=== PATIENT | female | born 1985 | race Caucasian/White ===

== ENCOUNTER 2025-03-29 15:30 | Emergency (ER) | payer SELFPAY ==
[2025-03-29] VITALS (8 sets, daily range): BP systolic 96–118; BP diastolic 60–94; PULSE 96–103; RESP 14–26; TEMP 35.8–36.6; O2SAT 95–100; BMI 29.8
--- NOTE | 2025-03-29 15:45 | RAD_ITS ---
PROCEDURE: RAD/Wrist min 3 Views
--- NOTE | 2025-03-29 15:45 | EX.ED.UPPERE ---
HPI History of Present Illness Chief Complaint: Upper Extremity Injury Detail of Chief Complaint: Right wrist injury Informant: patient Narrative Narrative: Patient presents to the emergency department with injury to the right wrist that occurred prior to arrival in the emergency department. Patient states she was rollerskating when she fell and injured her right wrist. She is ambidextrous. Denies any other injuries. She is not anticoagulated. She broke both wrist 3 years ago. She did not require surgery 3 years ago. PFSH PFS Medical History (Updated 03/29/25 @ 16:[address] Tk Montero, DO) Arm fracture, right Hysterectomy planned Benign tumor of back Cysts of both ovaries Home Medications ?Medication ?Instructions ?Recorded ?Last Taken ?Type Ibuprofen [Motrin] 800 mg PO DAILY 06/06/15 Unknown History oxycodone-acetaminophen 5 mg-325 1 tab PO Q8H PRN pain 3 days #15 03/29/25 Unknown Rx mg tablet (Percocet) tabs Allergy/AdvReac Type Severity Reaction Status Date / Time morphine Allergy Severe Rash Verified 03/29/25 15:31 Surgical History (Updated 03/29/25 @ 16:32 by Yecenia Ann) History of removal of both ovaries Social History Smoking Status: Current every day smoker tobacco type: e-cigarettes ROS ROS ED Review of Systems ROS Unobtainable: other Constitutional Constitutional ED: Reports lethargy; Denies chills, fever(s), sweats or weight loss Eyes Eyes: Denies blurry vision, change in vision or diplopia ENT ENT ED: Denies rhinorrhea or sore throat Cardiovascular Cardiovascular: Denies chest pain, orthopnea or racing heartbeat Respiratory/Chest Respiratory/Chest: Denies cough, dyspnea, dyspnea on exertion, orthopnea or sputum Gastrointestinal Gastrointestinal: Denies abdominal pain, diarrhea, nausea or vomiting Genitourinary Genitourinary ED: Denies dysuria, hematuria or urinary frequency Musculoskeletal Musculoskeletal: Reports other Details: Right wrist-patient has diffuse tenderness over the distal radius with some soft tissue swelling noted and mild deformity. Neurovascularly intact distally. No broken skin. No pain at the elbow. ; Denies arthralgias, back pain, myalgias or neck pain Integumentary Denies abscess, Abrasions or rash Neurologic Neurologic: Denies headache(s) or weakness Psychiatric Psychiatric: Denies anxiety, depression or suicidal thoughts Endocrine Endocrinology: Denies polydipsia, polyphagia or polyuria Hematologic/Lymphatic Hematologic/Lymphatic: Denies easy bleeding, easy bruising or lymphadenopathy Allergic/Immunologic Allergic/Immunologic ED: Denies mouth swelling, tongue swelling or urticaria EXAM Physical Exam Const Vital Signs: 03/29/25 15:32 Temperature 96.5 F L Temperature Source Temporal Pulse Rate 96 Respiratory Rate 18 Blood Pressure 107/60 Blood Pressure Mean 75 Pulse Ox 97 Oxygen Delivery Method Room Air MDM MDM MDM Narrative Medical decision making narrative: Patient presents with injury to the right wrist. Three-view x-rays obtained showed a distal radius fracture impacted and intra-articular. Patient was consented for procedural sedation with propofol. I was able to perform closed reduction and splint the patient in AP splint. Normal neurovascular status after reduction. Postreduction x-rays were obtained and showed good reduction. Discussed case with Dr. Lennon who was able to evaluate the films studies and agrees with following up patient in the office and we will discuss possible surgical options. Patient will be given a sling. She will be given a prescription for Percocet for home. Instructed to ice and elevate the extremity. Advised to follow-up in 2 days with orthopedics. Lab Data Attestation: I reviewed the patient's lab results. Radiography Diagnostic Testing: Three-view x-rays of the right wrist obtained interpreted by myself as distal radius fracture that impacted and intra-articular. 3 view x-rays obtained postreduction showed good reduction of the fracture. Procedures Procedural Sedation 1 (Initial Baseline): Consent Signed: Yes Any Problems With Anesthesia: No You/Your family experience fever (hyperthermia) w/anesthesia: No Sedation medication: Propofol Dose: 120 Route: IV Total Moderate Sedation Units: 120 Maliampati Score: Class I ASA Classification: I Discharge Plan Triage Chief Complaint: Upper Extremity Injury ED Provider: Tk Montero Dx/Rx/DC Orders Clinical Impression: Distal radial fracture Instructions: ED Colles Fracture, Reduction Required Prescriptions: New oxycodone-acetaminophen [Percocet] 5-325 mg tablet 1 tab PO Q8H PRN (Reason: pain) 3 Days Qty: 15 0RF No Action Ibuprofen [Motrin] 800 MG tablet 800 mg PO DAILY Primary Care Provider: Care Physician,No Primary Referrals: Aj Ashford DO [Med Staff - Active Staff, Orthopedics] - 03/31/25 Care Physician,No Primary [Primary Care Provider, Medical] Activity Restrictions/Additional Instructions: See the orthopedic surgeon on March 31. Call the office at 8 AM to set up appointment and let them know that you were seen in the emergency department and you need to follow-up on that day. Print Language: Armenian Disposition Disposition: Home, Self Care
--- NOTE | 2025-03-29 16:30 | RAD_ITS ---
PROCEDURE: RAD/Wrist min 3 Views
--- NOTE | 2025-03-29 16:50 | CM.ED ---
Social Work Date of referral: 03/29/2025 Reason for referral: Primary Care Physician (PCP) not on file. Referred by: Social Work identification Patient provided consent to social work visit. Patient stated that although she doesn't have a PCP, she goes to the [facility] for all of her care which provides an extremely low cost for office visits, medication and who also sends referrals for routine screenings. Patient stated they do everything and stated she loves it. Patient declined the need for any additional resources at this time. Daniela London, [employer], [employer]ES SPECIAL [employer]ENT
[2025-03-29] MEDS: HYDROmorphone 0.5 MG/0.5 ML SYRINGE IV (16:53)
== END 2025-03-29 17:16 | disposition home or self-care (01) ==
PROVIDERS: Emergency Provider Emergency Medicine; Visit Provider Emergency Medicine
DX: S52.571A Other intraarticular fracture of lower end of right radius, initial encounter for closed fracture (principal); V00.121A Fall from non-in-line roller-skates, initial encounter; Y93.51 Activity, roller skating (inline) and skateboarding; F17.290 Nicotine dependence, other tobacco product, uncomplicated
CPT/HCPCS: 25605; 73110; 96374; 96375; 99284; A4216; J2405